=== PATIENT | male | born 1995 | race Caucasian/White ===

== ENCOUNTER 2018-03-13 07:09 | Emergency (ER) | payer BC ==
[2018-03-13] MEDS ORDERED: ONDANSETRON DISINTEGRATING 4 MG TAB ONE (07:18)
[2018-03-13] MEDS ORDERED: ONDANSETRON 4 MG/2 ML VIAL IVP ONE ×3 (07:28→13:59)
[2018-03-13] MEDS ORDERED: NS 1,000 ML IV ONE ×2 (07:28→08:04)
--- NOTE | 2018-03-13 07:37 | EDPHY ---
HPI/HX/ROS/PE/MDM Narrative: CHIEF COMPLAINT: Nausea and vomiting HPI: The patient is a 23 y/o male with a history of a anxiety and an appendectomy complaining of nausea, vomiting, diarrhea and body aches onset last night. He has recently been taking less Xanax as he is trying to get off of it. He denies recent use of antibiotics, travel outside of the country or eating abnormal food. No fever, chest pain, shortness of breath, urinary complaints, numbness, paresthesias. REVIEW OF SYSTEMS: Aside from elements discussed in the HPI, a comprehensive 10-point review of systems was reviewed and is negative. PMH: Anxiety and appendectomy SOCIAL HISTORY: Lives in [place], single, student at PHYSICAL EXAM: General: Patient is alert, in no acute distress. ENT: Eyes are normal to inspection. ENT inspection normal. Neck: Normal inspection. Full range of motion. Respiratory: No respiratory distress. Breath sounds normal bilaterally. Cardiovascular: Regular rate and rhythm. Strong peripheral pulses. Normal cap refill. Abdomen: Mild diffuse tenderness to palpation. There are no peritoneal signs. There are normal bowel sounds. Back: Normal to inspection. No tenderness to palpation. Skin: Normal color. No rash. Warm and dry. Extremities: Normal appearance. Full range of motion. Neuro: Oriented x3. Normal motor function. Normal sensory function. ED Course: 0808: Patient is still nauseous after receiving 1L IV NS and 4mg IV Zofran; additional 4mg IV Zofran and 1L IV NS administered. 0952: Patient is still nauseated, but was able to keep down fluids. 10mg IV Reglan and 1mg IV Ativan administered. 1250: Reassessed patient and discussed laboratory results. He is feeling better after NS and Zofran. Tolerating PO. He denies abdominal pain. He also now tells me that he was on a recent cabin trip and approximately 7 out of approximately 14 guys on the trip now have the same symptoms. 1336: Reassessed patient, he has tolerated crackers and water without difficulty but still feels somewhat nauseated. I recommended further observation here in the ED but he would like to go home. Abdomen remains benign. No complaints of abdominal pain. 1434: Reassessed patient, he still has no complaints of abdominal pain. Stool PCR still pending; I have advised him to call back for the results. I have prescribed him Zofran to go home with; additional 4mg IV Zofran and 1gm PO Tylenol administered prior to discharge. Return precautions provided; patient is comfortable with this plan. MDM: This patient presents with vomiting. I strongly suspect he is suffering from Norovirus, which is currently very common in the community. His abdomen is benign and I think serious disease such as appendicitis or bowel obstruction is extremely unlikely. - Data Points Laboratory Results: Laboratory Results 03/13/18 07:30 03/13/18 07:30 03/13/18 03/13/18 07:30 07:30 WBC 13.07 10^3/uL H 10^3/uL (3.80-9.50) RBC 5.81 10^6/uL 10^6/uL (4.40-6.38) Hgb 17.8 g/dL H g/dL (13.7-17.5) Hct 48.0 % % (40.0-51.0) MCV 82.6 fL fL (81.5-99.8) MCH 30.6 pg pg (27.9-34.1) MCHC 37.1 g/dL H g/dL (32.4-36.7) RDW 11.9 % % (11.5-15.2) Plt Count 278 10^3/uL 10^3/uL (150-400) MPV 10.3 fL fL (8.7-11.7) Neut % (Auto) 85.9 % H % (39.3-74.2) Lymph % (Auto) 6.6 % L % (15.0-45.0) [place] % (Auto) 6.3 % % (4.5-13.0) Eos % (Auto) 0.3 % L % (0.6-7.6) Baso % (Auto) 0.7 % % (0.3-1.7) Nucleat RBC Rel Count 0.0 % % (0.0-0.2) Absolute Neuts (auto) 11.23 10^3/uL H 10^3/uL (1.70-6.50) Absolute Lymphs (auto) 0.86 10^3/uL L 10^3/uL (1.00-3.00) Absolute Monos (auto) 0.82 10^3/uL H 10^3/uL (0.30-0.80) Absolute Eos (auto) 0.04 10^3/uL 10^3/uL (0.03-0.40) Absolute Basos (auto) 0.09 10^3/uL 10^3/uL (0.02-0.10) Absolute Nucleated RBC 0.00 10^3/uL 10^3/uL (0-0.01) Immature Gran % 0.2 % % (0.0-1.1) Immature Gran # 0.03 10^3/uL 10^3/uL (0.00-0.10) Sodium 141 mEq/L mEq/L (135-145) Potassium 4.1 mEq/L mEq/L (3.5-5.2) Chloride 104 mEq/L mEq/L (97-110) Carbon Dioxide 20 mEq/l L mEq/l (22-31) Anion Gap 17 mEq/L H mEq/L (6-14) BUN 17 mg/dL mg/dL (7-23) Creatinine 1.1 mg/dL mg/dL (0.7-1.3) Estimated GFR > 60 Glucose 119 mg/dL H mg/dL (70-100) Calcium 10.3 mg/dL mg/dL (8.5-10.4) Lipase 79 IU/L IU/L (23-300) Medications Given: Discontinued Medications Sodium Chloride (Ns) 1,000 mls @ 0 mls/hr IV EDNOW ONE; Wide Open PRN Reason: Protocol Stop: 03/13/18 07:29 Last Admin: 03/13/18 07:39 Dose: 1,000 mls Sodium Chloride (Ns) 1,000 mls @ 0 mls/hr IV ONCE ONE; Wide Open PRN Reason: Protocol Stop: 03/13/18 08:05 Last Admin: 03/13/18 08:07 Dose: 1,000 mls Lorazepam (Ativan Injection) 1 mg IVP EDNOW ONE Stop: 03/13/18 09:53 Last Admin: 03/13/18 09:55 Dose: 1 mg Metoclopramide HCl (Reglan Injection) 10 mg IVP EDNOW ONE Stop: 03/13/18 09:53 Last Admin: 03/13/18 09:55 Dose: 10 mg Ondansetron HCl (Zofran) 4 mg IVP EDNOW ONE Stop: 03/13/18 07:29 Last Admin: 03/13/18 07:54 Dose: Not Given Ondansetron HCl (Zofran) 4 mg IVP EDNOW ONE Stop: 03/13/18 08:05 Last Admin: 03/13/18 08:08 Dose: 4 mg Ondansetron HCl (Zofran) 4 mg IVP EDNOW ONE Stop: 03/13/18 14:00 Last Admin: 03/13/18 14:06 Dose: 4 mg General Time Seen by Provider: 03/13/18 07:36 Initial Vital Signs: Initial Vital Signs Temperature (C) 36.0 C 03/13/18 07:13 Heart Rate 106 H 03/13/18 07:13 Respiratory Rate 24 H 03/13/18 07:13 Blood Pressure 102/57 L 03/13/18 07:13 O2 Sat (%) 100 03/13/18 07:13 O2 Delivery Mode Room Air Allergies/Adverse Reactions: Sulfa (Sulfonamide Antibiotics) Allergy (Unknown, Verified 12/13/15 19:20) Home Medications: Medication Instructions Recorded Ondansetron Odt [Zofran Odt] 4 mg PO Q4PRN PRN #7 tab 03/13/18 Xanax 03/13/18 Departure - Departure Disposition: Home, Routine, Self-Care Clinical Impression: Vomiting Condition: Good Instructions: Acute Nausea and Vomiting (ED) Additional Instructions: Take Zofran as prescribed. Please call back for the stool PCR. Follow-up with your primary doctor within 72 hours. Return to the Emergency Department for fever, chest pain, shortness of breath, increasing pain or other worsening of condition. Referrals: Adam Banuelos MD [Primary Care Provider] - As per Instructions Prescriptions: Ondansetron Odt [Zofran Odt] 4 mg PO Q4PRN PRN #7 tab PRN Reason: Nausea Report Scribed for: Tariq Hollingsworth Report Scribed by: Jessica Ly Date of Report: 03/13/18 Time of Report: 07:37 Physician Review and Approval Statement: Portions of this note were transcribed by an ED scribe. I personally performed the history, physical exam, and medical decision making; and confirm the accuracy of the information in the transcribed note.
[2018-03-13 08:47] LABS: PLATELET COUNT 278 10^3/uL (150-400)
[2018-03-13] MEDS ORDERED: LORazepam 2 MG/ML INJ IVP ONE (09:52)
[2018-03-13] MEDS ORDERED: METOCLOPRAMIDE 10 MG/2 ML VIAL IVP ONE (09:52)
[2018-03-13] MEDS ORDERED: ACETAMINOPHEN 500 MG TAB PO ONE (14:34)
[2018-03-13 14:50] VITALS: BP 139/84
== END 2018-03-13 14:50 | disposition home or self-care (01) ==
DX: R11.10 Vomiting, unspecified (principal); E86.9 Volume depletion, unspecified; F41.9 Anxiety disorder, unspecified; Z90.49 Acquired absence of other specified parts of digestive tract; Z88.2 Allergy status to sulfonamides
CPT/HCPCS: 96374; J2060; J2405; J2765